=== PATIENT | male | born 1985 | race African-American/Black ===

== ENCOUNTER 2018-06-13 13:19 | Emergency (ER) | payer SELFPAY ==
[2018-06-13] MEDS ORDERED: NA CHLORIDE 0.9% 1,000 ML ONE (13:57)
[2018-06-13 14:17] LABS: Urine Blood 1+ (NEG); Urine Glucose NEGATIVE (NEG); Urine Protein NEGATIVE (NEG); Urine pH 6.5 (5.0-7.0)
[2018-06-13 14:24] LABS: Urine Bacteria <20 /HPF (NONE SEEN); Urine Culture Reflex Order NOT NEEDED; Urine Mucus 1+ /HPF (NONE SEEN)
[2018-06-13 14:25] LABS: ALT/SGPT 33 U/L (12-78); AST/SGOT 18 U/L (15-37); Albumin 4.1 g/dL (3.4-5.0); Alkaline Phosphatase 63 U/L (45-117); Amylase Level 50 U/L (25-115); BUN Blood Urea Nitrogen 11 mg/dL (7-18); Bicarbonate 27 mmol/L (21-32); Bilirubin Direct 0.2 mg/dL (0-0.2); Bilirubin Total 0.7 mg/dL (0.2-1.0); Glucose Level 96 mg/dL (74-106); Lipase 82 U/L (73-393); Potassium 3.7 mmol/L (3.5-5.1); Protein, Total 7.7 g/dL (6.4-8.2); Sodium Level 142 mmol/L (136-145)
[2018-06-13 14:36] LABS: Absolute Lymphocytes (CBC) 1.9 K/uL (0.7-4.9); Absolute Monocytes 0.6 K/uL (0.1-1.3); Absolute Neutrophil 2.6 K/uL (1.8-8.0); Basophils % 0.8 % (0-1.3); Eosinophils % 0.3 % (0-4.4); Hematocrit 47.4 % (39.6-49.0); MCH 24.9 pg (27.0-35.0); MCV 76.2 fL (80-100); MPV 9.1 fL (7.6-11.3); RBC Red Blood Cell Count 6.22 M/uL (4.33-5.43)
--- NOTE | 2018-06-13 14:38 | RAD REPORT ---
EXAM DESCRIPTION: CT - Head Brain Wo Cont - 06/13/2018 2:28 pm CLINICAL HISTORY: headache, dizziness COMPARISON: No comparisons TECHNIQUE: All CT scans are performed using dose optimization technique as appropriate and may inclu de automated exposure control or mA/KV adjustment according to patient size. FINDINGS: No intracranial hemorrhage, hydrocephalus or extra-axial fluid collection.No areas of brai n edema or evidence of midline shift. The paranasal sinuses and mastoids are clear. The calvarium is intact. IMPRESSION: No acute intracranial abnormality.
[2018-06-13] MEDS ORDERED: MECLIZINE HCL 12.5 MG TAB ONE (14:43)
--- NOTE | 2018-06-13 15:34 | RAD REPORT ---
EXAM DESCRIPTION: RAD - Chest Single View - 06/13/2018 2:52 pm CLINICAL HISTORY: CHEST PAIN Chest pain. COMPARISON: No comparisons FINDINGS: Portable technique limits examination quality. The lungs are grossly clear. The heart is normal in size. No displaced fractures. IMPRESSION: No acute intrathoracic process suspected.
--- NOTE | 2018-06-13 17:06 | ER ---
Nurse's Notes [facility] Name: Harinder Bai Age: 32 yrs Sex: Male : 1985 Arrival Date: 06/13/2018 Time: 13:23 Bed 27 Private MD: Diagnosis: Other chest pain;Headache Presentation: 06/13 13:29 Presenting complaint: Patient states: He has been having pressure in his head and aj1 dizziness for the past week. He was seen in the ER at [facility] on Friday and diagnosed with a stomach virus. He was discharged with a Rx for Zofran and Famotidine. Reports that his N/V has resolved but he is still having headache and diarrhea. Sitting BP 143/101 HR 70. Standing BP 128/101 HR 93. Patient denies fever. Transition of care: patient was not received from another setting of care. Onset of symptoms was June 08, 2018. Risk Assessment: Do you want to hurt yourself or someone else? Patient reports no desire to harm self or others. Initial Sepsis Screen: Does the patient meet any 2 criteria? No. Patient's initial sepsis screen is negative. Does the patient have a suspected source of infection? No. Patient's initial sepsis screen is negative. Care prior to arrival: None. 13:29 Method Of Arrival: Ambulatory aj 13:29 Acuity: SATHISH 3 aj1 Triage Assessment: 13:32 General: Appears in no apparent distress. uncomfortable, Behavior is calm, cooperative, aj1 appropriate for age. Pain: Complains of pain in forehead and right cheondoism Pain currently is 3 out of 10 on a pain scale. Quality of pain is described as pressure, Pain began one week ago. Neuro: Level of Consciousness is awake, alert, obeys commands, Oriented to person, place, time, situation. Neuro: Moves all extremities. Full function Gait is steady, Speech is normal, Facial symmetry appears normal, Cardiovascular: Patient's skin is warm and dry. Respiratory: Airway is patent Respiratory effort is even, unlabored, Respiratory pattern is regular, symmetrical. GI: Patient currently denies diarrhea, nausea, vomiting. Derm: Skin is pink, warm \T\ dry. normal. Musculoskeletal: Circulation, motion, and sensation intact. Historical: - Allergies: 13:32 No Known Allergies; aj1 - Home Meds: 13:32 Zofran (as hydrochloride) 4 mg Oral tab 1 tabs every 6 hours as needed [Active]; aj1 famotidine 20 mg Oral tab 1 tab every 12 hours [Active]; - PMHx: 13:32 None; aj1 - PSHx: 13:32 None; aj1 - Immunization history:: Flu vaccine is not up to date. - Social history:: Smoking status: Patient uses tobacco products, smokes one-half pack cigarettes per day. - Ebola Screening: : Patient denies travel to an Ebola-affected area in the 21 days before illness onset. Screenin:44 Abuse screen: Denies threats or abuse. Nutritional screening: No deficits noted. la1 Tuberculosis screening: No symptoms or risk factors identified. Fall Risk None identified. Assessment: 13:43 General: Appears in no apparent distress. Behavior is calm, cooperative. Pain: Denies la1 pain. Neuro: Level of Consciousness is awake, alert, obeys commands, Oriented to person, place, time, situation, [employer] are equal bilaterally Moves all extremities. Full function Gait is steady, Speech is normal, Facial symmetry appears normal, Pupils are PERRLA. Cardiovascular: Heart tones S1 S2 present Capillary refill < 3 seconds. Respiratory: Airway is patent Respiratory effort is even, unlabored, Respiratory pattern is regular, symmetrical, Breath sounds are clear. GI: No signs and/or symptoms were reported involving the gastrointestinal system. : No signs and/or symptoms were reported regarding the genitourinary system. 15:15 Reassessment: Patient appears in no apparent distress at this time. Patient and/or rv family updated on plan of care and expected duration. Pain level reassessed. Patient is alert, oriented x 3, equal unlabored respirations, skin warm/dry/pink. Vital Signs: 13:32 BP 143 / 104; Pulse 70; Resp 16; Temp 98.6; Pulse Ox 98% on R/A; Weight 102.06 kg (R); aj1 Height 6 ft. 2 in. (187.96 cm) (R); Pain 3/10; 15:14 BP 136 / 89; Pulse 63; Pulse Ox 99% on R/A; rv 15:21 BP 136 / 89; Pulse 61; Resp 16; Pulse Ox 98% on R/A; la1 16:30 BP 130 / 79 LA (auto/); Pulse 70; Resp 19 S; Pulse Ox 98% on R/A; jp3 16:48 BP 130 / 79; Pulse 64; Resp 18; Pulse Ox 97% on R/A; la1 17:16 BP 130 / 79; Pulse 62; Pulse Ox 99% on R/A; rv 13:32 Body Mass Index 28.89 (102.06 kg, 187.96 cm) aj1 ED Course: 13:23 Patient arrived in ED. sb2 13:31 Triage completed. aj1 13:32 Arm band placed on Patient placed in waiting room. aj1 13:36 Javon Sanchez, RN is Primary Nurse. la1 13:41 Cesar Wallace PA is PHCP. jm 13:41 Zachariah Nagel MD is Attending Physician. jm 13:44 Placed in gown. Bed in low position. Call light in reach. la1 13:50 Initial lab(s) drawn, by me, sent to lab. Urine collected: clean catch specimen, clear, jp3 jose colored. Inserted saline lock: 22 gauge in left forearm, using aseptic technique. Blood collected. 14:03 Side rails up X 1. Warm blanket given. Pillow given. Pulse ox on. NIBP on. jp3 14:04 Urine Dipstick--Ancillary (enter results) Sent. jp3 14:04 Amylase, Serum Sent. jp3 14:04 Basic Metabolic Panel Sent. jp3 14:04 CBC with Diff Sent. jp3 14:04 Creatinine for Radiology Sent. jp3 14:04 Hepatic Function Sent. jp3 14:04 Lipase Sent. jp3 14:05 Urine Microscopic Only Sent. jp3 14:24 EKG done, by ED staff, reviewed by Cesar LAN. jp3 14:27 D-Dimer Sent. jp3 14:27 Troponin I Sent. jp3 14:27 D-Dimer Sent. jp3 14:27 Troponin I Sent. jp3 14:28 CT Head Brain wo Cont In Process Unspecified. EDMS 14:28 CT completed. Patient tolerated procedure well. Patient moved back from CT. Patient bq moved to radiology. 14:52 Chest Single View XRAY In Process Unspecified. EDMS 16:16 Repeat lab(s) drawn. by me, sent to lab. EKG done, by ED staff, reviewed by Cesar LAN. 16:16 Troponin (emerg Dept Use Only) Sent. jp3 17:04 Dennys Corado MD is Referral Physician[facility] 17:17 No provider procedures requiring assistance completed. IV discontinued, bleeding rv controlled, No redness/swelling at site. Pressure dressing applied. Administered Medications: 14:07 Drug: NS 0.9% 1000 ml Route: IV; Rate: 1 bolus; Site: left forearm; la1 17:17 Follow up: IV Status: Completed infusion rv 14:41 Drug: Meclizine 50 mg Route: PO; la1 17:16 Follow up: Response: No adverse reaction; Nausea is decreased rv Outcome: 17:05 Discharge ordered by MD. jmm 17:17 Discharged to home ambulatory. rv 17:17 Condition: improved 17:17 Discharge instructions given to patient, Instructed on discharge instructions, follow up and referral plans. medication usage, Demonstrated understanding of instructions, follow-up care, medications, Prescriptions given X 1. 17:18 Patient left the ED. rv Signatures: Dispatcher [employer] EDMS Shannon Richards, RN RN cassie1 Cesar Wallace PA PA jmm Quilty, Betty bq Attema, Lee, RN RN la1 Lolly Levin sb2 Matthew Joseph RN RN rv Parveen Bernal jp3
--- NOTE | 2018-06-13 17:06 | EDPHYS ---
Physician Documentation [facility] Name: Harinder Bai Age: 32 yrs Sex: Male : 1985 Arrival Date: 06/13/2018 Time: 13:23 Bed 27 Private MD: ED Physician Zachariah Nagel HPI: 06/13 14:12 This 32 yrs old Black Male presents to ER via Ambulatory with complaints of Headache, jmm dizziness, chest pain. 14:12 The patient complains of pain to the forehead, right gnosticist, right frontal area, right jmm temporal area and right side of forehead. Onset: The symptoms/episode began/occurred gradually, 2 week(s) ago. Associated signs and symptoms: Pertinent positives: dizziness, chest pain. The patient has not experienced similar symptoms in the past. This is a 32 year old male with no chronic medical conditions that presents to the ED with right sided headache dizziness beginning 2 weeks ago. Patient states he recently recovered from a viral abdominal infection. Patient states that he continues to have dizziness worsening with change in position along with chest pressure. Patient also complains of shortness of breath. Denies fever. Denies recent recreational drug use. . Historical: - Allergies: 13:32 No Known Allergies; aj1 - Home Meds: 13:32 Zofran (as hydrochloride) 4 mg Oral tab 1 tabs every 6 hours as needed [Active]; aj1 famotidine 20 mg Oral tab 1 tab every 12 hours [Active]; - PMHx: 13:32 None; aj1 - PSHx: 13:32 None; aj1 - Immunization history:: Flu vaccine is not up to date. - Social history:: Smoking status: Patient uses tobacco products, smokes one-half pack cigarettes per day. - Ebola Screening: : Patient denies travel to an Ebola-affected area in the 21 days before illness onset. ROS: 14:12 Constitutional: Negative for fever, chills, and weight loss. jmm 14:12 Cardiovascular: Positive for chest pain. 14:12 Abdomen/GI: Negative for nausea and vomiting, diarrhea. 14:12 Neuro: Positive for headache. 14:12 Neuro: Positive for dizziness. 14:12 All other systems are negative. Exam: 14:12 Head/Face: atraumatic. jmm 14:12 Constitutional: The patient appears in no acute distress, alert, awake. 14:12 Eyes: Nystagmus: fatigable, noted on gaze to the right, horizontal. 14:12 Chest/axilla: Inspection: normal, Palpation: tenderness, that totally reproduces the patient's complaints. 14:12 Cardiovascular: Rate: normal, Rhythm: regular. 14:12 Respiratory: the patient does not display signs of respiratory distress, Respirations: normal, Breath sounds: are clear throughout. 14:12 Abdomen/GI: Inspection: abdomen appears normal, Bowel sounds: normal, Palpation: abdomen is soft and non-tender, in all quadrants. 14:12 Back: ROM is normal. 14:12 Musculoskeletal/extremity: ROM: intact in all extremities. 14:12 Skin: Appearance: Color: normal in color. 14:12 Neuro: Orientation: is normal, Mentation: is normal, Memory: is normal. 14:12 Neuro: Cerebellar function: normal finger to nose testing, Motor: is normal. 14:12 Psych: Behavior/mood is pleasant, cooperative. Vital Signs: 13:32 BP 143 / 104; Pulse 70; Resp 16; Temp 98.6; Pulse Ox 98% on R/A; Weight 102.06 kg (R); aj1 Height 6 ft. 2 in. (187.96 cm) (R); Pain 3/10; 15:14 BP 136 / 89; Pulse 63; Pulse Ox 99% on R/A; rv 15:21 BP 136 / 89; Pulse 61; Resp 16; Pulse Ox 98% on R/A; la1 16:30 BP 130 / 79 LA (auto/); Pulse 70; Resp 19 S; Pulse Ox 98% on R/A; jp3 16:48 BP 130 / 79; Pulse 64; Resp 18; Pulse Ox 97% on R/A; la1 17:16 BP 130 / 79; Pulse 62; Pulse Ox 99% on R/A; rv 13:32 Body Mass Index 28.89 (102.06 kg, 187.96 cm) aj1 MDM: 14:09 Patient medically screened. lia 17:04 Data reviewed: vital signs, nurses notes. Counseling: I had a detailed discussion with lia the patient and/or guardian regarding: the historical points, exam findings, and any diagnostic results supporting the discharge/admit diagnosis, the need for outpatient follow up, to return to the emergency department if symptoms worsen or persist or if there are any questions or concerns that arise at home. 06/13 13:41 Order name: Amylase, Serum; Complete Time: 14:[address] [facility] 06/13 13:41 Order name: Basic Metabolic Panel; Complete Time: 14:[address] [facility] 06/13 13:41 Order name: CBC with Diff; Complete Time: 14:[address] [facility] 06/13 13:41 Order name: Creatinine for Radiology; Complete Time: 14:[address] [facility] 06/13 13:41 Order name: Hepatic Function; Complete Time: 14:[address] [facility] 06/13 13:41 Order name: Lipase; Complete Time: 14:[address] [facility] 06/13 13:41 Order name: Urine Microscopic Only; Complete Time: 14:[address] [facility] 06/13 13:55 Order name: Urine Dipstick--Ancillary (enter results); Complete Time: 14:34 06/13 14:10 Order name: Troponin I [facility] 06/13 14:10 Order name: Chest Single View XRAY; Complete Time: 15:[address] [facility] 06/13 14:10 Order name: D-Dimer [facility] 06/13 14:10 Order name: Troponin I; Complete Time: 15:05 [facility] 06/13 14:10 Order name: D-Dimer; Complete Time: 15:30 [facility] 06/13 16:00 Order name: Troponin (emerg Dept Use Only); Complete Time: 17:[address] [facility] 06/13 13:41 Order name: IV Saline Lock; Complete Time: 14:[address] [facility] 06/13 13:41 Order name: Labs collected and sent; Complete Time: 14:[address] [facility] 06/13 13:41 Order name: Urine Dipstick-Ancillary (obtain specimen); Complete Time: 13:[address] [facility] 06/13 14:10 Order name: EKG - Nurse/Tech; Complete Time: 14:[address] [facility] 06/13 14:10 Order name: CT Head Brain wo Cont; Complete Time: 14:[address] [facility] 06/13 16:00 Order name: EKG - Nurse/Tech; Complete Time: 16:[address] [facility] Administered Medications: 14:07 Drug: NS 0.9% 1000 ml Route: IV; Rate: 1 bolus; Site: left forearm; la1 17:17 Follow up: IV Status: Completed infusion rv 14:41 Drug: Meclizine 50 mg Route: PO; la1 17:16 Follow up: Response: No adverse reaction; Nausea is decreased rv Disposition: 18:25 Co-signature as Attending Physician, Zachariah Nagel MD. rn Disposition: 06/13/18 17:05 Discharged to Home. Impression: Other chest pain, Headache. - Condition is Stable. - Discharge Instructions: Nonspecific Chest Pain, General Headache Without Cause, Vertigo. - Prescriptions for Meclizine 25 mg Oral Tablet - take 1 tablet by ORAL route every 8 hours As needed; 30 tablet. - Medication Reconciliation Form, Thank You Letter, Antibiotic Education, Prescription Opioid Use form. - Follow up: Dennys Corado MD; When: 2 - 3 days; Reason: Recheck today's complaints, Continuance of care, Re-evaluation by your physician. - Notes: Please follow up with neurology for further evaluation. Please return to the ED if you develop worsening chest pain, shortness of breath, weakness, fever, or any other concerning symptoms. Signatures: Dispatcher [employer] EDMS Shannon Richards RN RN aj1 Cesar Wallace PA PA jmm Nieto, Roman, MD MD rn Attema, Lee, RN RN la1 Matthew Joseph RN RN rv Corrections: (The following items were deleted from the chart) 17:18 17:05 06/13/2018 17:05 Discharged to Home. Impression: Other chest pain; Headache. rv Condition is Stable. Forms are Medication Reconciliation Form, Thank You Letter, Antibiotic Education, Prescription Opioid Use. Follow up: Dennys Corado; When: 2 - 3 days; Reason: Recheck today's complaints, Continuance of care, Re-evaluation by your physician. [facility]
--- NOTE | 2018-06-14 08:53 | EKG ---
Test Date: 2018-06-13 Test Time: 16:14:06 Family Resource Management Professor: MEASUREMENT RESULTS: Intervals: Rate: 59 HI: 140 QRSD: 114 QT: 408 QTc: 403 [place]: P: 63 HI: 140 QRS: 26 T: 35 INTERPRETIVE STATEMENTS: Sinus bradycardia Otherwise normal ECG Compared to ECG 06/13/2018 14:21:39 Sinus rhythm no longer present ST (T wave) deviation no longer present Electronically Signed On 06-14-18 08:52:35 CDT by [place]
--- NOTE | 2018-06-14 08:54 | EKG ---
Test Date: 2018-06-13 Test Time: 14:21:39 College Athlete: PORTILLO MEASUREMENT RESULTS: Intervals: Rate: 61 VT: 140 QRSD: 102 QT: 410 QTc: 412 [place]: P: 64 VT: 140 QRS: 18 T: 29 INTERPRETIVE STATEMENTS: Normal sinus rhythm Nonspecific ST abnormality Abnormal ECG No previous ECG available for comparison Electronically Signed On 06-14-18 08:52:40 CDT by [place]ieves
== END 2018-06-13 17:18 | disposition home or self-care (01) ==
LOC: ER 13:19
DX: R07.89 Other chest pain (principal); R51 Headache; R42 Dizziness and giddiness; F17.210 Nicotine dependence, cigarettes, uncomplicated
CPT/HCPCS: 36415; 70450; 71045; 80048; 80076; 81003; 81015; 82150; 83690; 84484; 85025; 85379; 93005; 96360; 96361; 99285; J7030

== ENCOUNTER 2018-09-01 21:09 | Emergency (ER) | payer SELFPAY ==
--- OUTSIDE RECORDS SUMMARY | 2018-09-01 21:10 | XMS REPORT | Continuity of Care Document ---
:1985 Author Organization [facility] Address [address] [place] [address] Phone Unavailable Care Team Providers Name Role Phone PHYSICIAN, NO Primary Care Physician Unavailable Insurance Providers Guarantor Leah Bai Jr Address [address] [place] [address] Email NONE Payer Self Pay Insurance Subscriber's Name Leah Bai Jr Relationship Self / Same As Patient Group Number NA Group Name NA Advance Directives Directive Response Recorded Date/Time Advance Directive on File No 08/17/18 5:08am Patient/Family Given Education Material R/T Y - 08/17/18...MK 08/17/18 5: 13am Directives? Chief Complaint and Reason for Visit Chief Complaint Chest Pain Reason for Visit Atypical chest pain Pleurisy Problems Medical Problem Onset Date Status ALS (amyotrophic lateral sclerosis) Unknown Acute Atypical chest pain Unknown Acute Chest wall contusion Unknown Acute Cystitis Unknown Acute Dental caries Unknown Acute Fall from horse Unknown Acute Laceration of chest wall Unknown Acute Pleurisy Unknown Acute Ureteropelvic junction calculus Unknown Acute Urinary retention Unknown Acute Past Problems Medical Problem Onset Date Status Abrasion of lip, initial encounter Unknown Acute Chest pain Unknown Acute Cocaine use Unknown Acute Dizziness Unknown Acute Dizziness Unknown Acute Elevated CK Unknown Acute Fracture of alveolar process of maxilla Unknown Acute Gastritis Unknown Acute Generalized weakness Unknown Acute Heat intolerance Unknown Acute Marijuana use Unknown Acute Minimal maxillary incisor display Unknown Acute Oral injury Unknown Acute Medications No known medications. Social History Social History Problem Response Recorded Date/Time Onset Date Status Hx Physical Abuse No 08/17/2018 5:08am Not Applicable Not Applicable Smoking Status Start Date Stop Date Current every day smoker Hospital Discharge Instructions No hospital discharge instruction information available. Plan of Care Discharge Date 08/17/18 6:41am Instructions/Education Provided Nonspecific Chest Pain, [id number] Pleurisy, [id number] Forms Provided Portal Welcome Letter Prescriptions See Medication Section Referrals NO PHYSICIAN Functional Status No functional status information available. Allergies, Adverse Reactions, Alerts No known allergies. Immunizations No immunization information available. Vital Signs Acute Vital Signs Vital Response Date/Time Blood Pressure 128/79 mm Hg 08/17/2018 6:40am Pulse Pulse Rate (adult) 55 beats per minute (60 - 100) 08/17/2018 6:40am Respiratory Rate 18 breaths per minute (10 - 24) 08/17/2018 6:40am Temperature Source Oral 08/17/2018 5:08am Height 6 ft 2 in 08/17/2018 5:08am Weight 225 lb 08/17/2018 5:08am Body Mass Index 28.9 kg/m^2 08/17/2018 5:08am Results Laboratory Results Test Name Result Units Flags Reference Collection Result Comments Date/Time Date/Time White Blood Count 6.0 K/ul 4.0-12.3 08/17/2018 08/17/2018 5:30am 5:36am Red Blood Count 6.18 M/ul H 3.80-5.80 08/17/2018 08/17/2018 5:30am 5:36am Hemoglobin 14.8 g/dl 11.67-17.2 08/17/2018 08/17/2018 2 5:30am 5:36am Hematocrit 48.5 % 35.0-51.0 08/17/2018 08/17/2018 5:30am 5:36am Mean Corpuscular 78.5 fl 78-96 08/17/2018 08/17/2018 Volume 5:30am 5:36am Mean Corpuscular 23.9 pg L 26.8-33.4 08/17/2018 08/17/2018 Hemoglobin 5:30am 5:36am Mean Corpuscular 30.4 g/dl L 32.3-36.7 08/17/2018 08/17/2018 Hemoglobin Concent 5:30am 5:36am Red Cell 11.6 % 11.6-15.4 08/17/2018 08/17/2018 Distribution Width 5:30am 5:36am Platelet Count 247 K/ul 115-328 08/17/2018 08/17/2018 5:30am 5:36am Mean Platelet 8.0 fl L 8.4-11.8 08/17/2018 08/17/2018 Volume 5:30am 5:36am Neutrophils (%) 36.6 % L 44.7-82.4 08/17/2018 08/17/2018 (Auto) 5:30am 5:36am Lymphocytes (%) 45.5 % 10.0-50.0 08/17/2018 08/17/2018 (Auto) 5:30am 5:36am Monocytes (%) 12.9 % 3.9-13.4 08/17/2018 08/17/2018 (Auto) 5:30am 5:36am Eosinophils (%) 3.1 % 0.0-6.43 08/17/2018 08/17/2018 (Auto) 5:30am 5:36am Basophils (%) 1.9 % H 0.0-0.72 08/17/2018 08/17/2018 (Auto) 5:30am 5:36am D-Dimer 205 ng/mL <500 08/17/2018 08/17/2018 5:30am 5:51am Prothrombin Time 10.9 SECONDS 10.3-12.3 08/17/2018 08/17/2018 5:30am 5:48am THERAPEUTIC LEVEL: 1.5 to 1.9 times normal range of PT Prothromb Time 0.99 08/17/2018 08/17/2018 International 5:30am 5:48am Recommended therapeutic range for patients receiving Ratio warfarin (coumadin) therapy: INR is 2.0 to 3.0 Recommended range for patients with mechanical prosthetic heart valves: INR is 2.5 to 3.5 Activated Partial 26.8 SECONDS 22.5-37.0 08/17/2018 08/17/2018 Thromboplast Time 5:30am 5:48am Random Glucose 113 mg/dL H 74-106 08/17/2018 08/17/2018 5:30am 5:52am Blood Urea 16 mg/dL 6-20 08/17/2018 08/17/2018 Nitrogen 5:30am 5:52am Serum Osmolality 281 280-300 08/17/2018 08/17/2018 5:30am 5:52am Creatinine 0.8 mg/dL 0.70-1.20 08/17/2018 08/17/2018 5:30am 5:52am Glomerular > 60.00 08/17/2018 08/17/2018 GFR RESULTS ARE REPORTED IN mL/min/1.73m2. Filtration Rate 5:30am 5:52am Calc Normal GFR: >60mL/min Moderately decreased GFR: 30-59 mL/min Severely decreased GFR: 15-29 mL/min Kidney Failure (or Dialysis): <15 mL/min The calculated eGFR is not valid for patients younger than 18 years or older than 75 years. BUN/Creatinine 20.0 12-08/17/2018 08/17/2018 Ratio 5:30am 5:52am Sodium Level 140 mmol/L 135-145 08/17/2018 08/17/2018 5:30am 5:52am Potassium Level 3.9 mmol/L 3.5-5.2 08/17/2018 08/17/2018 5:30am 5:52am Chloride Level 107 mmol/L 98-108 08/17/2018 08/17/2018 5:30am 5:52am Carbon Dioxide 26 mmol/L 21-32 08/17/2018 08/17/2018 Level 5:30am 5:52am Anion Gap 10.9 mEq/L L 12-08/17/2018 08/17/2018 5:30am 5:52am Calcium Level 9.2 mg/dL 8.6-10.0 08/17/2018 08/17/2018 5:30am 5:52am Total Protein 6.7 g/dL 6.6-8.7 08/17/2018 08/17/2018 5:30am 5:52am Albumin 4.1 g/dL 3.5-5.2 08/17/2018 08/17/2018 5:30am 5:52am Globulin 2.6 gm/dL 08/17/2018 08/17/2018 5:30am 5:52am Albumin/Globulin 1.6 >1.0 08/17/2018 08/17/2018 Ratio 5:30am 5:52am Total Bilirubin 0.3 mg/dL 0.0-1.2 08/17/2018 08/17/2018 5:30am 5:52am Aspartate Amino 14 U/L L 15-40 08/17/2018 08/17/2018 Transf (AST/SGOT) 5:30am 5:52am Alanine 18 U/L 0-41 08/17/2018 08/17/2018 Aminotransferase 5:30am 5:52am (ALT/SGPT) OR-Jyk-Q-Type 20 pg/mL 0-125 08/17/2018 08/17/2018 Natriuretic 5:30am 5:56am Peptide Total Alkaline 53 U/L 40-130 08/17/2018 08/17/2018 Phosphatase 5:30am 5:52am Creatine Kinase 184 U/L 20-200 08/17/2018 08/17/2018 5:30am 5:52am Troponin I < 0.30 ng/mL 0.0-0.5 08/17/2018 08/17/2018 Published clinical studies have shown elevations of cTnI in 5:30am 5:56am patients with myocardial injury, as seen in unstable angina pectoris, cardiac contusions, and heart transplants. Elevations have also been seen in patients with rhabdomyolysis and polymyositis. Elevated troponin levels point to myocardial injury, but are not necessarily indicative of an ischemic mechanism. The term DC should be used when there is evidence of cardiac damage, as detected by marker proteins in a clinical setting consistent with myocardial ischemia. If the clinical circumstance suggests that an ischemic mechanism is unlikely, other causes of cardiac injury should be considered. For diagnostic purposes, the results should always be assessed in conjunction with the patient's medical history, clinical examination and other findings. Creatine Kinase MB 1.1 ng/ml 0.0-3.6 08/17/2018 08/17/2018 5:30am 5:56am DIAGNOSTIC CITERIA: CKMB CKMB RELATIVE INDEX SUGGESTIVE OF NON-AMI < or=5 N/A WELLS ZONE (INCONCLUSIVE) > 5 < or=4 SUGGESTIVE OF AMI >5 > 4 Procedures Procedure Status Date Provider(s) X-ray of chest, single view Completed 08/17/18 LAUREN SIERRA MD Encounters Encounter Location Arrival/Admit Date Discharge/Depart Date Attending Provider Registered Tyrel 08/17/18 5:05am [facility] Emergency Room [facility] Recent Diagnosis
[2018-09-01 22:19] LABS: Absolute Lymphocytes (CBC) 3.3 K/uL (0.7-4.9); Absolute Monocytes 0.8 K/uL (0.1-1.3); Absolute Neutrophil 4.2 K/uL (1.8-8.0); Basophils % 0.9 % (0-1.3); Eosinophils % 1.9 % (0-4.4); Hematocrit 47.1 % (39.6-49.0); Lymphocytes % 38.7 % (15.3-44.8); MCH 24.6 pg (27.0-35.0); MCV 77.1 fL (80-100); Monocytes % 9.1 % (3.3-12.3); RBC Red Blood Cell Count 6.11 M/uL (4.33-5.43)
[2018-09-01 22:39] LABS: BUN Blood Urea Nitrogen 18 mg/dL (7-18); Bicarbonate 28 mmol/L (21-32); Glucose Level 95 mg/dL (74-106); Potassium 3.4 mmol/L (3.5-5.1); Sodium Level 141 mmol/L (136-145); Troponin (Emerg Dept Use Only) < 0.02 ng/mL (0.0-0.045)
--- NOTE | 2018-09-01 23:33 | EDPHYS ---
Physician Documentation [facility] Name: Harinder Bai Age: 32 yrs Sex: Male : 1985 Arrival Date: 09/01/2018 Time: 21:14 Bed 14 Private MD: ED Physician Harshad Wahl HPI: 09/01 22:00 This 32 yrs old Black Male presents to ER via Ambulatory with complaints of Chest Pain. pm1 22:00 The patient or guardian reports chest pain that is located primarily in the mid-sternal pm1 area. The pain does not radiate. Associated signs and symptoms: Pertinent negatives: cough, nausea, shortness of breath, vomiting. The chest pain is described as burning. Duration: The patient or guardian reports multiple episodes. Modifying factors: The symptoms are alleviated by Pepcid. the symptoms are aggravated by eating. The patient has not recently seen a physician. Patient with chest pain about 1-2 months ago that was evaluated here in the ER and he was discharged with Pepcid. Took the Pepcid and his pain was resolved for 2 weeks but came back. Patient's chest pain is caused by and worsened with food. Historical: - Allergies: 21:18 No Known Allergies; aj1 - Home Meds: 21:18 None [Active]; aj1 - PMHx: 21:18 None; aj1 - PSHx: 21:18 None; aj1 - Immunization history:: Flu vaccine is not up to date. - Social history:: Smoking status: Patient uses tobacco products, smokes one-half pack cigarettes per day. - Ebola Screening: : Patient denies travel to an Ebola-affected area in the 21 days before illness onset. ROS: 22:00 Constitutional: Negative for fever, chills, and weight loss, Eyes: Negative for injury, pm1 pain, redness, and discharge, ENT: Negative for injury, pain, and discharge, Neck: Negative for injury, pain, and swelling. 22:00 Respiratory: Negative for shortness of breath, cough, wheezing, and pleuritic chest pain, Abdomen/GI: Negative for abdominal pain, nausea, vomiting, diarrhea, and constipation, Back: Negative for injury and pain, : Negative for injury, bleeding, discharge, and swelling, MS/Extremity: Negative for injury and deformity, Skin: Negative for injury, rash, and discoloration, Neuro: Negative for headache, weakness, numbness, tingling, and seizure. 22:00 Cardiovascular: Positive for chest pain, Negative for edema, orthopnea, palpitations. Exam: 22:00 Constitutional: This is a well developed, well nourished patient who is awake, alert, pm1 and in no acute distress. Head/Face: Normocephalic, atraumatic. Eyes: Pupils equal round and reactive to light, extra-ocular motions intact. Lids and lashes normal. Conjunctiva and sclera are non-icteric and not injected. Cornea within normal limits. Periorbital areas with no swelling, redness, or edema. ENT: Nares patent. No nasal discharge, no septal abnormalities noted. Tympanic membranes are normal and external auditory canals are clear. Oropharynx with no redness, swelling, or masses, exudates, or evidence of obstruction, uvula midline. Mucous membranes moist. Neck: Trachea midline, no thyromegaly or masses palpated, and no cervical lymphadenopathy. Supple, full range of motion without nuchal rigidity, or vertebral point tenderness. No Meningismus. Chest/axilla: Normal chest wall appearance and motion. Nontender with no deformity. No lesions are appreciated. Cardiovascular: Regular rate and rhythm with a normal S1 and S2. No gallops, murmurs, or rubs. Normal PMI, no JVD. No pulse deficits. Respiratory: Lungs have equal breath sounds bilaterally, clear to auscultation and percussion. No rales, rhonchi or wheezes noted. No increased work of breathing, no retractions or nasal flaring. Abdomen/GI: Soft, non-tender, with normal bowel sounds. No distension or tympany. No guarding or rebound. No evidence of tenderness throughout. Back: No spinal tenderness. No costovertebral tenderness. Full range of motion. Skin: Warm, dry with normal turgor. Normal color with no rashes, no lesions, and no evidence of cellulitis. MS/ Extremity: Pulses equal, no cyanosis. Neurovascular intact. Full, normal range of motion. 22:00 Neuro: Orientation: is normal, Motor: is normal, Gait: is steady, at a normal pace, without difficulty. Vital Signs: 21:18 BP 146 / 95; Pulse 73; Resp 18; Temp 98.0; Pulse Ox 99% on R/A; Weight 92.99 kg (R); aj1 Height 6 ft. 2 in. (187.96 cm) (R); 21:57 BP 134 / 91; Pulse 65; Resp 16; Pulse Ox 97% on R/A; jb4 22:43 BP 127 / 77; Pulse 62; Resp 10; Pulse Ox 98% on R/A; Pain 7/10; jb4 09/02 00:04 BP 119 / 75; Pulse 61; Resp 16; Pulse Ox 97% on R/A; jb4 09/01 21:18 Body Mass Index 26.32 (92.99 kg, 187.96 cm) aj1 MDM: 09/01 21:24 Patient medically screened. pm1 23:31 Data reviewed: vital signs. Data interpreted: Pulse oximetry: on room air is 98 %. pm1 Interpretation: normal. Counseling: I had a detailed discussion with the patient and/or guardian regarding: the historical points, exam findings, and any diagnostic results supporting the discharge/admit diagnosis, lab results, radiology results, the need for outpatient follow up, to return to the emergency department if symptoms worsen or persist or if there are any questions or concerns that arise at home. 09/01 21:31 Order name: Basic Metabolic Panel; Complete Time: 23:20 pm1 09/01 21:31 Order name: CBC with Diff; Complete Time: 23:20 pm1 09/01 21:31 Order name: Troponin (emerg Dept Use Only); Complete Time: 23:20 pm1 09/01 21:31 Order name: XRAY Chest (1 view) pm1 09/01 21:31 Order name: EKG; Complete Time: 21:31 pm1 09/01 21:31 Order name: Cardiac monitoring; Complete Time: 21:56 pm1 09/01 21:31 Order name: EKG - Nurse/Tech; Complete Time: 21:36 pm1 09/01 21:31 Order name: IV Saline Lock; Complete Time: 21:36 pm1 09/01 21:31 Order name: Labs collected and sent; Complete Time: 21:56 pm1 09/01 21:31 Order name: O2 Per Protocol; Complete Time: 21:36 pm1 09/01 21:31 Order name: O2 Sat Monitoring; Complete Time: 21:36 pm1 Administered Medications: 09/02 00:03 Drug: GI Cocktail without - (Maalox Suspension 30 ml, Lidocaine Liquid 2 % 15 jb4 ml) Route: PO; 00:04 Follow up: Response: No adverse reaction; Pain is decreased jb4 00:03 Drug: Pepcid 20 mg Route: IVP; Site: left antecubital; jb4 00:04 Follow up: Response: No adverse reaction jb4 Disposition: 09/01/18 23:32 Discharged to Home. Impression: Chest pain, unspecified. - Condition is Stable. - Discharge Instructions: Nonspecific Chest Pain. - Prescriptions for Pepcid 20 mg Oral Tablet - take 1 tablet by ORAL route every 12 hours for 10 days; 20 tablet. - Medication Reconciliation Form, Thank You Letter form. - Follow up: Emergency Department; When: As needed; Reason: Worsening of condition. Follow up: Private Physician; When: 2 - 3 days; Reason: Recheck today's complaints, Continuance of care, Re-evaluation by your physician. - Problem is new. - Symptoms have improved. Addendum: 09/04/2018 04:05 Co-signature as Attending Physician, Harshad Wahl MD. g s Signatures: Dispatcher [employer] EDMS Shannon Richards RN RN aj1 Osei Deluna NP CLOTH EDGE SINGER pm1 Justus Nogueira RN RN jb4 Harshad Wahl MD MD Corrections: (The following items were deleted from the chart) 09/02 00:07 09/01 23:32 09/01/2018 23:32 Discharged to Home. Impression: Chest pain, unspecified. jb4 Condition is Stable. Forms are Medication Reconciliation Form, Thank You Letter, Antibiotic Education, Prescription Opioid Use. Follow up: Emergency Department; When: As needed; Reason: Worsening of condition. Follow up: Private Physician; When: 2 - 3 days; Reason: Recheck today's complaints, Continuance of care, Re-evaluation by your physician. Problem is new. Symptoms have improved. pm1
--- NOTE | 2018-09-01 23:33 | ER ---
Nurse's Notes [facility] Name: Harinder Bai Age: 32 yrs Sex: Male : 1985 Arrival Date: 09/01/2018 Time: 21:14 Bed 14 Private MD: Diagnosis: Chest pain, unspecified Presentation: 09/01 21:14 Presenting complaint: Patient states: "I've been having some bad chest pain. I was at aj1 work earlier and my whole arm went numb." Reports he has been having chest pain on and off for the past few months. Reports that he was seen in this ER when his chest pain first started, but he has been unable to follow up with anyone The past 2 days his chest pain has been worse. Reports SOB. Denies palpitations, dizziness. Transition of care: patient was not received from another setting of care. Onset of symptoms was June 2018. Risk Assessment: Do you want to hurt yourself or someone else? Patient reports no desire to harm self or others. Initial Sepsis Screen: Does the patient meet any 2 criteria? No. Patient's initial sepsis screen is negative. Does the patient have a suspected source of infection? No. Patient's initial sepsis screen is negative. Care prior to arrival: None. 21:14 Method Of Arrival: Ambulatory aj 21:14 Acuity: SATHISH 3 aj1 Triage Assessment: 21:18 General: Appears in no apparent distress. comfortable, Behavior is calm, cooperative, aj1 appropriate for age. Pain: Complains of pain in anterior aspect of left upper chest Pain currently is 7 out of 10 on a pain scale. Neuro: Level of Consciousness is awake, alert, obeys commands. Cardiovascular: Patient's skin is warm and dry. Respiratory: Airway is patent Respiratory effort is even, unlabored, Respiratory pattern is regular, symmetrical. Historical: - Allergies: 21:18 No Known Allergies; aj1 - Home Meds: 21:18 None [Active]; aj1 - PMHx: 21:18 None; aj1 - PSHx: 21:18 None; aj1 - Immunization history:: Flu vaccine is not up to date. - Social history:: Smoking status: Patient uses tobacco products, smokes one-half pack cigarettes per day. - Ebola Screening: : Patient denies travel to an Ebola-affected area in the 21 days before illness onset. Screenin:52 Abuse screen: Denies threats or abuse. Nutritional screening: No deficits noted. jb4 Tuberculosis screening: No symptoms or risk factors identified. Fall Risk None identified. Assessment: 21:52 General: Appears in no apparent distress. uncomfortable, Behavior is calm, cooperative, jb4 appropriate for age. Pain: Pain does not radiate. Pain currently is 10 out of 10 on a pain scale. Quality of pain is described as burning, stabbing, Pain began 1 month ago. Is intermittent, Alleviated by rest. Neuro: Level of Consciousness is awake, alert, obeys commands, Oriented to person, place, time, situation. Cardiovascular: Heart tones S1 S2 present Patient's skin is warm and dry. Rhythm is sinus rhythm. Respiratory: Airway is patent Respiratory effort is even, unlabored, Respiratory pattern is regular, symmetrical, Breath sounds are clear bilaterally. GI: No signs and/or symptoms were reported involving the gastrointestinal system. : No signs and/or symptoms were reported regarding the genitourinary system. EENT: No signs and/or symptoms were reported regarding the EENT system. Derm: Skin is intact, Skin is dry, Skin is black, Skin temperature is warm. Musculoskeletal: Circulation, motion, and sensation intact. 22:43 Reassessment: Patient appears in no apparent distress at this time. Patient and/or jb4 family updated on plan of care and expected duration. Pain level reassessed. Patient is alert, oriented x 3, equal unlabored respirations, skin warm/dry/pink. 09/02 00:04 Reassessment: Patient appears in no apparent distress at this time. Patient and/or jb4 family updated on plan of care and expected duration. Pain level reassessed. Patient is alert, oriented x 3, equal unlabored respirations, skin warm/dry/pink. Discussed D/c, F/u with pt, denies questions or concerns. Vital Signs: 09/01 21:18 BP 146 / 95; Pulse 73; Resp 18; Temp 98.0; Pulse Ox 99% on R/A; Weight 92.99 kg (R); aj1 Height 6 ft. 2 in. (187.96 cm) (R); 21:57 BP 134 / 91; Pulse 65; Resp 16; Pulse Ox 97% on R/A; jb4 22:43 BP 127 / 77; Pulse 62; Resp 10; Pulse Ox 98% on R/A; Pain 7/10; jb4 09/02 00:04 BP 119 / 75; Pulse 61; Resp 16; Pulse Ox 97% on R/A; jb4 09/01 21:18 Body Mass Index 26.32 (92.99 kg, 187.96 cm) aj1 ED Course: 09/01 21:14 Patient arrived in ED. es 21:18 Triage completed. aj1 21:18 Arm band placed on Patient placed in an exam room. aj1 21:22 Osei Deluna NP is PHCP. pm1 21:22 Harshad Wahl MD is Attending Physician. pm1 21:25 EKG done, by ED staff, reviewed by Harshad Wahl MD. bb 21:28 Inserted saline lock: 20 gauge in left antecubital area, using aseptic technique. Blood la1 collected. 21:46 Justus Nogueira, XIAO is Primary Nurse. jb4 21:52 Patient has correct armband on for positive identification. Placed in gown. Bed in low jb4 position. Call light in reach. Side rails up X 1. quality assurance monitor final on. Pulse ox on. NIBP on. 21:52 Patient maintains SpO2 saturation greater than 95% on room air. jb4 22:36 XRAY Chest (1 view) In Process Unspecified. EDMS 09/02 00:04 No provider procedures requiring assistance completed. IV discontinued, intact, jb4 bleeding controlled. Administered Medications: 00:03 Drug: GI Cocktail without - (Maalox Suspension 30 ml, Lidocaine Liquid 2 % 15 jb4 ml) Route: PO; 00:04 Follow up: Response: No adverse reaction; Pain is decreased jb4 00:03 Drug: Pepcid 20 mg Route: IVP; Site: left antecubital; jb4 00:04 Follow up: Response: No adverse reaction jb4 Outcome: 09/01 23:32 Discharge ordered by . pm1 09/02 00:04 Discharged to home ambulatory. jb4 Condition: stable Discharge instructions given to patient, Instructed on discharge instructions, follow up and referral plans. medication usage, Demonstrated understanding of instructions, follow-up care, medications, Prescriptions given X 1. 00:07 Patient left the ED. jb4 Signatures: Dispatcher [facility] Shannon Richards RN RN aj1 Muriel Bhatt Brenda, RN RN bb Javon Sanchez, RN RN la1 Osei Deluna, ASBESTOS SHINGLE ROOFER ASBESTOS SHINGLE ROOFER pm1 Justus Nogueira, RN RN jb4
[2018-09-02] MEDS ORDERED: FAMOTIDINE 20 MG/2 ML VIAL IV ONE
[2018-09-02] MEDS ORDERED: LIDOCAINE VISCOUS 2% SOLN 15 ML UDC ONE
[2018-09-02] MEDS ORDERED: MAGNE/ALUM HYDROXD 30 ML UCUP ONE
--- NOTE | 2018-09-02 07:46 | RAD REPORT ---
EXAM DESCRIPTION: Igor Single View09/01/2018 10:35 pm CLINICAL HISTORY: Chest pain COMPARISON: June 2018 FINDINGS: The lungs appear clear of acute infiltrate. The heart is normal size IMPRESSION: No acute abnormalities displayed
--- NOTE | 2018-09-02 11:47 | EKG ---
Test Date: 2018-09-01 Test Time: 21:24:19 Internet Technology Manager: GABO MEASUREMENT RESULTS: Intervals: Rate: 69 WY: 144 QRSD: 106 QT: 392 QTc: 420 Jayess: P: 66 WY: 144 QRS: 19 T: 37 INTERPRETIVE STATEMENTS: Normal sinus rhythm Normal ECG Compared to ECG 06/13/2018 16:14:06 Sinus bradycardia no longer present Electronically Signed On 09-02-18 11:45:43 EVIDENCE TECHNICIAN by Michele Jamison
== END 2018-09-02 00:07 | disposition home or self-care (01) ==
LOC: ER 21:09
DX: R07.9 Chest pain, unspecified (principal); F17.210 Nicotine dependence, cigarettes, uncomplicated
CPT/HCPCS: 36415; 71045; 80048; 84484; 85025; 93005; 96374; 99285